=== PATIENT | female | born 1990 | race African-American/Black ===

== ENCOUNTER 2022-04-14 16:00 | Emergency (ER) | payer OTHER | END 2022-04-14 18:00 | disposition home or self-care (01) | LOC: VM.ED 16:00 | DX: M54.2 Cervicalgia (principal); V49.40XA Driver injured in collision with unspecified motor vehicles in traffic accident, initial encounter; Y92.410 Unspecified street and highway as the place of occurrence of the external cause | CPT/HCPCS: 99283 ==